=== PATIENT | female | born 1955 ===

== ENCOUNTER → 2021-10-29 10:24 | Outpatient (BNVA) | payer OTHER, SELFPAY | PROVIDERS: PCP Internal Medicine; Visit Provider Nurse Practitioner Family | DX: G43.709 Chronic migraine without aura, not intractable, without status migrainosus (principal); G47.33 Obstructive sleep apnea (adult) (pediatric) | CPT/HCPCS: 99212 ==

== ENCOUNTER → 2022-02-04 08:56 | Outpatient (BNVA) | payer OTHER, SELFPAY | PROVIDERS: PCP Internal Medicine; Visit Provider Nurse Practitioner Family | DX: G47.33 Obstructive sleep apnea (adult) (pediatric) (principal); G43.709 Chronic migraine without aura, not intractable, without status migrainosus; I10 Essential (primary) hypertension; Z79.899 Other long term (current) drug therapy | CPT/HCPCS: 99212 ==

== ENCOUNTER → 2022-06-03 10:29 | Outpatient (BNVA) | payer MEDICARE, SELFPAY | PROVIDERS: PCP Internal Medicine; Visit Provider Nurse Practitioner Family | DX: G47.33 Obstructive sleep apnea (adult) (pediatric) (principal); G43.709 Chronic migraine without aura, not intractable, without status migrainosus; Z99.89 Dependence on other enabling machines and devices; Z79.899 Other long term (current) drug therapy | CPT/HCPCS: 99212 ==

== ENCOUNTER → 2022-09-01 09:58 | Outpatient (BNVA) | payer OTHER, SELFPAY | PROVIDERS: PCP Internal Medicine; Visit Provider Nurse Practitioner Family | DX: G47.33 Obstructive sleep apnea (adult) (pediatric) (principal); G43.709 Chronic migraine without aura, not intractable, without status migrainosus | CPT/HCPCS: 99212 ==

== ENCOUNTER → 2022-09-06 12:53 | Outpatient (REF) | payer OTHER, SELFPAY | LOC: HO.SL 12:53 | PROVIDERS: PCP Internal Medicine; Visit Provider Nurse Practitioner Family | DX: G47.33 Obstructive sleep apnea (adult) (pediatric) (principal) | CPT/HCPCS: 95806 ==

== ENCOUNTER 2022-12-15 08:31 | Outpatient (REF) | payer OTHER, SELFPAY ==
--- NOTE | 2022-12-15 | EMG_ITS ---
Please see scanned EMG / Nerve Conduction Report. MTDD
== END 2022-12-15 08:32 | disposition home or self-care (01) ==
LOC: HO.NEURO 08:31
PROVIDERS: PCP Internal Medicine; Visit Provider Internal Medicine
DX: R20.2 Paresthesia of skin (principal)
CPT/HCPCS: 95860; 95885; 95907; 95913

== ENCOUNTER 2023-01-03 13:10 | Outpatient (AMB) | payer OTHER, SELFPAY ==
[2023-01-03 13:15] VITALS: BP 130/82; PULSE 110; O2SAT 98; BMI 28.4
--- NOTE | 2023-01-03 13:15 | MHC.OFFVIS ---
Intake Vital Signs 01/03/23 13:15 Height 5 ft 3 in Weight 160 lb 6 oz BMI 28.4 BP 130/82 Blood Pressure Location Rt brachial Position Sitting Pulse 110 H Pulse Source Pulse Oximeter Pulse Oximetry (%) 98 Oxygen Delivery Method Room Air Intake Visit Reasons: 4 mnts f/u appt -Confirmed Intake Note: Patient presents for 4 month follow up.Patient states everything is good, no concerns. Allergies No Known Allergies Allergy (Verified 01/03/23 13:17) Medication List - Last Reconciled 01/03/23 by OMID Alamo amitriptyline 100 mg PO BEDTIME amlodipine 10 mg PO DAILY budesonide-formoterol 160-4.5 mcg/actuation 2 puffs inhalation BID buspirone 7.5 mg PO BID diphenhydramine HCl (Banophen) 25 mg PO BEDTIME PRN galcanezumab-gnlm (Emgality Pen) 120 mg subcut ONCE 28 days losartan 100 mg PO DAILY magnesium oxide 400 mg PO DAILY 30 days melatonin 10 mg PO BEDTIME PRN metoprolol succinate ER 50 mg PO DAILY HPI HPI Comments History of Present Illness Details 67-yr-old female presents for f/u visit. Pt denies any significant interval medical changes. Pt underwent f/u HST which revealed mild TJ w/ AHI 6.6/hr and O2 catherine 78%. She has since received a new APAP set to [id number]. She states the enw machine is working much better and she is sleeping and feeling better with use. Her new machine is not currently connected to her [employer] portal- thus could not access her compliance report. She reports her migraines are better on Emgality. Now having 1 headache day per week, which responds to Tylenol. Cyclobenzaprine is helpful for her neck tightness/pain. She does also report LLE pain. States she thinks this is vascular as she had similar pain in her RLE as well. She is prone to leg cramps (at rest) and her LLE being cold and swollen. She plans to call her vascular provider. [facility] Medical History Asthma Bilateral carpal tunnel syndrome Cervicalgia Depression Diabetes HTN (hypertension) Subdural hemorrhage Social History Alcohol intake: current Alcohol intake frequency: holidays/special occasions only Patient Tobacco Use Status: Never used Tobacco Review of Systems Const All systems reviewed & are unremarkable except as noted in HPI and below Physical Exam Vital Signs: Last Vital Signs Pulse 110 H 01/03/23 13:15 BP 130/82 01/03/23 13:15 Pulse Ox 98 01/03/23 13:15 Oxygen Delivery Method Room Air 01/03/23 13:15 BMI result Body Mass Index 28.4 Const General: cooperative and no acute distress Orientation/consciousness: patient oriented x3 HEENT Head: Yes normocephalic Resp Effort & Inspection: normal respiratory effort and able to speak in complete sentences Neuro General: patient oriented x3, gait normal and CN's II-XI intact bilaterally Cognition (Neuro): normal cognition Motor exam (neuro): 5/5 motor strength present throughout Deep tendon reflexes (DTR's): Right patellar reflex intensity grade: 2+, Left patellar reflex intensity grade: 2+, Right ankle reflex intensity grade: 2+ and Left ankle reflex intensity grade: 2+ Extrem Other: BLE peripheral pulses 2+ No significant swelling/edema, redness, warmth General: Yes normal to inspection and Yes no calf tenderness Psych Appearance: grossly normal Mental Status: mental status grossly normal Speech and movement: Normal speech and movement present Affect: normal affect Attitude: cooperative Thought process: Normal thought process present Thought content: Normal thought content present Insight: Good insight present (Psych) Judgement: Good judgement present (Psych) Assessment & Plan Assessment & Plan (1) Chronic migraine without aura: Code(s): G43.709 - Chronic migraine without aura, not intractable, without status migrainosus (2) TJ (obstructive sleep apnea): Code(s): G47.33 - Obstructive sleep apnea (adult) (pediatric) Plan For migraine: Continue Emgality 120mg sc q 4 weeks. Continue Amitriptyline 100mg qhs. continue Mag 400mg qhs- may help leg cramps as well Currently on BB: Metoprolol for HTN management- BP is currently normotensive. Previous migraine txs: Topiramate- ineffective, Gabapentin- ineffective. Ajovy 225mg- helpful- stopped d/t insurance preference. Tx contraindications- Aimovig d/t constipation. Future considerations- adding acute migraine tx. ? For neck tightness/pian- Continue cyclobenzaprine 5-10mg qhs. ? For TJ: Continue APAP [id number] nightly, as pt is having good clinical effect from use. will request to be reconnected to pt's PAP compliance portal For leg pain- Pt to f/u w/ PCP/vascular. ? pt to f/u in 4 months or sooner prn. Coding Level of Care Code Est Pt Level 4 (96863) Diagnoses Chronic migraine without aura G43.709 TJ (obstructive sleep apnea) G47.33
== END 2023-01-03 13:37 | disposition home or self-care (01) ==
PROVIDERS: Visit Provider Nurse Practitioner Family
DX: G43.709 Chronic migraine without aura, not intractable, without status migrainosus (principal); G47.33 Obstructive sleep apnea (adult) (pediatric)
CPT/HCPCS: 99214

== ENCOUNTER → 2023-01-03 13:10 | Outpatient (BNVA) | payer OTHER, SELFPAY | PROVIDERS: Visit Provider Nurse Practitioner Family | DX: G43.709 Chronic migraine without aura, not intractable, without status migrainosus (principal); G47.33 Obstructive sleep apnea (adult) (pediatric) | CPT/HCPCS: 99212 ==

== ENCOUNTER 2023-11-04 11:21 | Outpatient (AMB) | payer OTHER, SELFPAY ==
--- NOTE | 2023-11-04 11:22 | A.OFFVIS_ITS ---
Vital Signs 11/04/23 11:27 Height 5 ft 3 in Weight 155 lb BMI 27.5 BP 128/78 Blood Pressure Location Rt brachial Position Sitting Intake Visit Reasons: 4m follow up-LVM Intake Note: Patient presents for 4 month follow up. no issues or concerns Cement Finishing Supervisor Required: Yes Cement Finishing Supervisor Name: allie barry Allergies No Known Allergies Allergy (Verified 11/04/23 11:32) Medication List - Last Reconciled 11/04/23 by OMID Alamo amitriptyline 100 mg PO BEDTIME amlodipine 10 mg PO DAILY atorvastatin 40 mg PO BEDTIME budesonide-formoterol 160-4.5 mcg/actuation 2 puffs inhalation BID buspirone 7.5 mg PO BID cyclobenzaprine 5 - 10 mg (1 - 2 x 5 mg) PO BEDTIME PRN 30 days diphenhydramine HCl (Banophen) 25 mg PO BEDTIME PRN galcanezumab-gnlm (Emgality Pen) 120 mg subcut ONCE 28 days losartan 100 mg PO DAILY magnesium oxide 400 mg PO DAILY 30 days melatonin 10 mg PO BEDTIME PRN metoprolol succinate ER 50 mg PO DAILY HPI Comments Details: 68-yr-old female presents for f/u visit. Pt states she was recently started on Atorvastatin d/t mild HLD. She is trying to eat better, take less sweets. She drinks a lot of water. No usual exercise- does not tolerate the heat. She reports her migraines are well-controlled on Emgality. Now having 1 headache day per week, which responds to Tylenol somewhat Cyclobenzaprine is helpful for her neck tightness/pain. Sleeping well w/ APAP. COUNT INCLUDES THE [facility] Medical History Asthma Bilateral carpal tunnel syndrome Cervicalgia Depression Diabetes HTN (hypertension) Subdural hemorrhage Social History Alcohol intake: current Alcohol intake frequency: holidays/special occasions only Patient Tobacco Use Status: Never used Tobacco Physical Exam Vital Signs: Last Vital Signs BP 128/78 11/04/23 11:27 BMI result Body Mass Index 27.5 Const General: cooperative and no acute distress Orientation/consciousness: patient oriented x3 Resp Effort & Inspection: normal respiratory effort and able to speak in complete sentences Neuro General: patient oriented x3 Cranial nerves: Yes CN's II-XII intact bilaterally Cognition (Neuro): normal cognition Psych Appearance: grossly normal Mental Status: mental status grossly normal Speech and movement: Normal speech and movement present Affect: normal affect Attitude: cooperative Assessment & Plan Assessment & Plan (1) Migraine without aura: Code(s): G43.009 - Migraine without aura, not intractable, without status migrainosus Category: Medical (2) TJ (obstructive sleep apnea): Code(s): G47.33 - Obstructive sleep apnea (adult) (pediatric) Category: Medical Plan For acute migraine tx: Trial Sumatriptan 100mg tab, 1/2 - 1 tab (50-100mg) at onset of headache, may repeat in 2 hours. Max of 2 tabs (200mg) per 24 hours. May adjunct with OTC Tylenol 650-1000mg q 4-6 hours prn. For migraine prevention: Continue Emgality 120mg sc q 4 weeks. Continue Amitriptyline 100mg qhs. Continue Mag 400mg qhs- may help leg cramps as well Currently on BB: Metoprolol for HTN management- BP is currently normotensive. Previous migraine txs: Topiramate- ineffective, Gabapentin- ineffective. Ajovy 225mg- helpful- stopped d/t insurance preference. Tx contraindications- Aimovig d/t constipation. For neck tightness/pian- Continue cyclobenzaprine 5-10mg qhs. ? For TJ: Continue APAP [id number] nightly, as pt is having good clinical effect from use. will request pt's PAP compliance portal ? Pt to f/u in 6 months or sooner prn. Medications: New sumatriptan succinate (0.5 - 1 x 100 mg) 50 - 100 mg orally at onset of headache, may repeat in 2 hrs PRN; max 2 tabs per day or 4 tabs/week (may take with Tylenol) 30 days 12 tabs 6RF migraine headache Coding Level of Care Code Est Pt Level 4 (30171) Diagnoses Migraine without aura G43.009 TJ (obstructive sleep apnea) G47.33
[2023-11-04 11:27] VITALS: BP 128/78; BMI 27.5
== END 2023-11-04 12:04 | disposition home or self-care (01) ==
PROVIDERS: PCP Internal Medicine; Visit Provider Nurse Practitioner Family
DX: G43.009 Migraine without aura, not intractable, without status migrainosus (principal); G47.33 Obstructive sleep apnea (adult) (pediatric)
CPT/HCPCS: 99214

== ENCOUNTER → 2023-11-04 11:21 | Outpatient (BNVA) | payer OTHER, SELFPAY | PROVIDERS: PCP Internal Medicine; Visit Provider Nurse Practitioner Family | DX: G43.009 Migraine without aura, not intractable, without status migrainosus (principal); G47.33 Obstructive sleep apnea (adult) (pediatric) | CPT/HCPCS: 99212 ==

== ENCOUNTER 2024-06-04 13:01 | Outpatient (AMB) | payer OTHER, SELFPAY ==
[2024-06-04 13:05] VITALS: BP 116/78; PULSE 106; O2SAT 95; BMI 27.7
--- NOTE | 2024-06-04 13:05 | A.OFFVIS_ITS ---
Vital Signs 06/04/24 13:05 Height 5 ft 3 in Weight 156 lb 8 oz BMI 27.7 BP 116/78 Blood Pressure Location Rt brachial Position Sitting Pulse 106 H Pulse Source Pulse Oximeter Pulse Oximetry (%) 95 Oxygen Delivery Method Room Air Intake Visit Reasons: 6 month F/U Intake Note: ins not covering medication Manager Strategic Required: Yes Manager Strategic Name: Speedy [id number] Information Interpreted: non-clinical only Allergies No Known Allergies Allergy (Verified 06/04/24 13:13) Medication List - Last Reconciled 06/04/24 by OMID Alamo amitriptyline 100 mg PO BEDTIME amlodipine 10 mg PO DAILY atorvastatin 40 mg PO BEDTIME budesonide-formoterol 160-4.5 mcg/actuation 2 puffs inhalation BID buspirone 7.5 mg PO BID cyclobenzaprine 5 - 10 mg (1 - 2 x 5 mg) PO BEDTIME PRN 30 days diphenhydramine HCl (Banophen) 25 mg PO BEDTIME PRN galcanezumab-gnlm (Emgality Pen) 120 mg subcut ONCE 28 days losartan 100 mg PO DAILY magnesium oxide 400 mg PO DAILY 30 days melatonin 10 mg PO BEDTIME PRN metoprolol succinate ER 50 mg PO DAILY naratriptan take 1/2 - 1 tab at onset of headache; if no relief may repeat 1 tab after at least 4 hrs; max = 2 tabs/24 hrs orally PRN; 30 days HPI Comments Details: 69-yr-old female presents for f/u visit of migraine, cervicalgia, and TJ. She reports her migraines are well-controlled on Emgality, however she has been told by her specialty pharmacy that her insurance is no longer covering Emgality as 2024. She now typically has 2 or 3 migraine days per month. She tried sumatriptan at 100 mg, but it was not helpful so order was changed to naratriptan. Patient states naratriptan is helpful. Cyclobenzaprine is no longer helpful for her neck tightness/pain. She states she is sleeping well with her APAP device. States she has enough supplies. States she always uses distilled water. [employer] Compliance Report Usage 05/05/2024 - 06/03/2024 Usage days 29/30 days (97%) >= 4 hours 16 days (53%) < 4 hours 13 days (43%) Usage hours 113 hours 9 minutes Average usage (total days) 3 hours 46 minutes Average usage (days used) 3 hours 54 minutes Median usage (days used) 4 hours 3 minutes Total used hours (value since last reset - 06/03/2024) 2,866 hours [employer] 11 AutoSet Serial number [id number] Mode AutoSet Min Pressure 6 cmH2O Max Pressure 16 cmH2O EPR Fulltime EPR level 3 Response Standard Therapy: Pressure - cmH2O Median: 9.2 95th percentile: 13.7 Maximum: 14.9 Leaks - L/min Median: 0.6 95th percentile: 18.9 Maximum: 56.6 Events per hour AI: 4.1 HI: 0.9 AHI: 5.0 PFSH Medical History Cataract Diabetes Depression HTN (hypertension) Asthma Cervicalgia Bilateral carpal tunnel syndrome Subdural hemorrhage Social History Alcohol intake: current Alcohol intake frequency: holidays/special occasions only Patient Tobacco Use Status: Never used Tobacco Physical Exam Vital Signs: Last Vital Signs Pulse 106 H 06/04/24 13:05 BP 116/78 06/04/24 13:05 Pulse Ox 95 06/04/24 13:05 Oxygen Delivery Method Room Air 06/04/24 13:05 BMI result Body Mass Index 27.7 Const General: cooperative and no acute distress Orientation/consciousness: patient oriented x3 Resp Effort & Inspection: normal respiratory effort and able to speak in complete sentences Neuro Other: Bilateral posterior cervical tightness. Cervical ROM: Limited Left Spurling: Negative Right Spurling: Negative General: patient oriented x3 Cranial nerves: Yes CN's II-XII intact bilaterally Cognition (Neuro): normal cognition Psych Appearance: grossly normal Mental Status: mental status grossly normal Speech and movement: Normal speech and movement present Affect: normal affect Attitude: cooperative Assessment & Plan Assessment & Plan (1) Migraine without aura: Code(s): G43.009 - Migraine without aura, not intractable, without status migrainosus Category: Medical (2) TJ (obstructive sleep apnea): Code(s): G47.33 - Obstructive sleep apnea (adult) (pediatric) Category: Medical Plan For acute migraine tx: Trial Naratriptan 2.5mg tab, 1/2 - 1 tab (1.25-2.5mg) at onset of headache, may repeat in 4 hours. Max of 2 tabs (5mg) per 24 hours. May adjunct with OTC Tylenol 650mg every 4 hours, Ibuprofen (liquigel) 600mg every 6 hours, or Naproxen (liquigel) 440mg every 12 hrs as needed. Potential adverse effects of triptans, include but are not limited to nausea, fatigue, chest tightness/tingling (usually passes within a few minutes), medication overuse headaches. Previous acute migraine tx trials: Sumatriptan 100 mg-ineffective. For migraine prevention: Continue Emgality 120mg sc q 4 weeks, as patient has had greater than 50% reduction in monthly migraine days with use. We will follow-up on insurance prior authorization status. Continue Amitriptyline 100mg qhs. Continue Mag 400mg qhs- may help leg cramps as well Currently on BB: Metoprolol for HTN management- BP is currently normotensive. Previous migraine txs: Topiramate- ineffective, Gabapentin- ineffective. Ajovy 225mg- helpful- stopped d/t insurance preference. Tx contraindications- Aimovig d/t constipation. For neck tightness/pain: Check XR C-spine complete with flexion and extension-order slip given to patient. Hold cyclobenzaprine 5-10mg qhs- as is no longer effective Trial gabapentin 100 mg capsule-1-3 mg q.h.s. or alternatively 1 cap p.o. t.i.d.. Previous trials: Baclofen 10-20 mg-ineffective. ? For TJ: Continue APAP 6-50mlY8H nightly, as pt is having good clinical effect from use with good reduction in residual AHI. Pt to f/u in 6 months or sooner prn. Orders: Orders XR cervical spine w flex/ext Today M54.2 - Cervicalgia Medications: New gabapentin 100 - 300 mg (1 - 3 x 100 mg) PO BEDTIME 90 caps 3RF 30 days Refilled magnesium oxide 400 mg PO DAILY 30 tabs 6RF 30 days naratriptan take 1/2 - 1 tab at onset of headache; if no relief may repeat 1 tab after at least 4 hrs; max = 2 tabs/24 hrs orally PRN; 12 tabs 6RF migraine headache 30 days Discontinued cyclobenzaprine Discontinued Reason: Doctor's Order 5 - 10 mg (1 - 2 x 5 mg) PO BEDTIME 30 days PRN 60 tabs 3RF muscle spasm Coding Level of Care Code Est Pt Level 4 (68351) Diagnoses Migraine without aura G43.009 TJ (obstructive sleep apnea) G47.33
--- OUTSIDE RECORDS SUMMARY | 2024-06-04 14:19 | XMS_ITS | Continuity of Care Document ---
Author Organization [facility] Address [address] [place] [address] Phone Care Team Providers Care Oil Refiner Name Role Phone Steve BUENO FACS RVT [place] Unavailable Unavailable Allergies, Adverse Reactions, Alerts Substance Reaction Status Criticality No Known Allergies Active No Inform ation Medications Medication Instructions Dosage Effective Dates (start - stop) Status Comments amitriptyline 100 mg tablet take 1 tablet by oral route every day at bedtime 100 MG - Active gabapentin 100 mg capsule take 1 capsule by oral route 3 times every day 100 MG - Active prazosin 1 mg capsule take 1 capsule by oral route 3 times every day 1 MG - Active hydroxyzine HCl 50 mg tablet take 1 tablet by oral route 4 times every day 50 MG - Active losartan 50 mg tablet take 1 tablet by o ral route every day 50 MG - Active bupropion HCl 100 mg tablet take 1 tablet by oral route 2 times every day 100 MG - Active Procedures Procedure Date Office/Outpt E&M Established 15 Mins Dec Advance Directives Directive Yes / No Effective Date File Name No Information Encounters Encounter Description Practice Location Reason(s) For Visit Diagnoses Date Provider Providers Copied on Encounter Office/Outpt E&M Established 15 Mins [facility], [address] [place] [address] [address], [id number], [place] tel:[phone] [facility] - [facility] Venous insufficiency (chronic) (peripheral)Pa in in left leg 3 Steve BUENO FACS RVT RPVI Zamz[place]. [address], [address], [place], [address], [place]. tel:[phone] Referring Provider: Annalee Kim APRN, [address] [place] [address], [place], [address]. tel:[phone] Family History Family Member Type Diagnosis Age At Onset No Information Payers Payer name Insurance type Covered green party ID Brigid connors(s) [facility] [id number] Social History Type Description Quantity Date Captured Comments Alcohol Use Details Caffeine Use Details Unknown Tobacco Use Status Ex-cigarette smoker 023 Smoking Status Former smoker Smoking Tobacco Use Details Cigarette: Age Stopped: 42 Cigarette: No Details Available Sex Female Chief Complaint And Reason For Visit No Information Reason For Referral Reason For Referral No Information Plan Of Treatment Date Type Action Status Goal Tobacco cessation counseling completed History Of Present Illness Encounter Date Complaint History Of Prese nt Illness No Information Functional Status Date Functional Assessmen t No Information Instructions Date Instruction Additional Infor mation No Information Assessments Type Assessment Date assessment Venous insufficiency (chronic) ( peripheral) assessment Pain in left leg Patient Care Teams Name Effective Dates (start - stop) Status Members No Information
== END 2024-06-04 13:54 | disposition home or self-care (01) ==
PROVIDERS: PCP Physician Assistant; Visit Provider Nurse Practitioner Family
DX: G43.009 Migraine without aura, not intractable, without status migrainosus (principal); G47.33 Obstructive sleep apnea (adult) (pediatric)
CPT/HCPCS: 99214

== ENCOUNTER → 2024-06-04 13:01 | Outpatient (BNVA) | payer OTHER, SELFPAY | PROVIDERS: PCP Physician Assistant; Visit Provider Nurse Practitioner Family | DX: G43.909 Migraine, unspecified, not intractable, without status migrainosus (principal); G47.33 Obstructive sleep apnea (adult) (pediatric); M54.2 Cervicalgia; Z79.899 Other long term (current) drug therapy; Z99.89 Dependence on other enabling machines and devices | CPT/HCPCS: 99212 ==